=== PATIENT | female | born 1945 | race Two or more races ===

== ENCOUNTER 2024-11-26 05:43 | Day surgery (SDC) | payer OTHER ==
[~2024-11-26 05:43] MED LIST: ANASTROZOLE1 MG PO; BUSPIRONE HCL15 MG PO; EXELON1 EACH TD; FARXIGA10 MG PO; HORIZANT300 MG PO; LOKELMA10 GM PO; PLAVIX75 MG PO; REPATHA SU140 MG/1 M SUBCUTANEO; SYNTHROID100 MCG PO; TOPROL XL25 M1 PO; ZETIA10 MG PO
[2024-11-26] MEDS ORDERED: TRAM1TAB98 PO (09:32)
[2024-11-26] MEDS ORDERED: MACROBID 100 M100 MG PO (09:32)
== END 2024-11-26 14:10 | disposition home or self-care (01) ==
LOC: CIR.AMB 05:43
PROVIDERS: ATTEND Obstetrics & Gynecology Gynecology
DX: N81.5 Vaginal enterocele (principal); N81.6 Rectocele; N81.11 Cystocele, midline; Z88.5 Allergy status to narcotic agent; Z91.013 Allergy to seafood; Z88.8 Allergy status to other drugs, medicaments and biological substances